=== PATIENT | male | born 1950 | race Caucasian/White ===

== ENCOUNTER 2021-07-14 11:30 | Inpatient (IN) ==
[2021-07-14] MEDS ORDERED: 0.9 % Sodium Chloride 1,000 ML ONE (11:48)
[2021-07-14] MEDS ORDERED: Isovue-370 500 ML BOTTLE IVP ONE ×2 (11:50→12:48)
[2021-07-14] MEDS ORDERED: 0.9 % Sodium Chloride 1,000 ML IVC ONE (11:50)
[2021-07-14 12:03] LABS: Basophils # 0.1 K/mcL (0.0-0.2); Basophils % 0.4 %; Eosinophils # 0.3 K/mcL (0.0-0.6); Eosinophils % 2.1 %; Hematocrit 34.3 % (37.5-50.1); Hemoglobin 10.4 g/dL (12.9-16.9); Immature Granulocytes % 0.8 % (0-4); Lymphocytes # 1.6 K/mcL (0.6-4.6); Lymphocytes % 10.9 %; Mean Corpuscular HGB Conc 30.3 g/dL (31.6-35.5); Mean Corpuscular Hemoglobin 27.7 pg (28.0-33.3); Mean Corpuscular Volume 91.2 fL (83.0-100.0); Mean Platelet Volume 9.9 fL (9.4-12.4); Monocytes # 1.2 K/mcL (0.0-1.3); Monocytes % 7.8 %; Neutrophils # 11.6 K/mcL (1.6-8.9); Platelet Count 295 K/mcL (140-400); Red Blood Count 3.76 M/mcL (4.19-5.50); Red Cell Distribution Width 16.4 % (11.5-14.5); White Blood Count 14.8 K/mcL (4.3-11.1)
[2021-07-14 12:18] LABS: INR 1.1; Prothrombin Time 12.8 Seconds (9.4-12.1)
[2021-07-14 12:21] LABS: Activated Partial Thrombo Time 31.5 Seconds (26.0-36.0)
[2021-07-14 12:23] LABS: Albumin 3.4 g/dL (3.5-5.7); Albumin/Globulin Ratio 0.8 (1.1-2.2); Bilirubin,Direct 0.2 mg/dL (0.0-0.2); Bilirubin,Indirect 0.4 mg/dL (0.0-1.0); Bilirubin,Total 0.6 mg/dL (0.3-1.0); Calcium 9.1 mg/dL (8.6-10.3); Globulin 4.1 g/dL (2.4-3.5); Potassium 5.8 mEq/L (3.5-5.1); Total Protein 7.5 g/dL (6.4-8.9); Troponin I 0.09 ng/mL (< 0.04)
[2021-07-14] MEDS ORDERED: 0.9 % Sodium Chloride 1,000 ML IV ONE (12:45)
[2021-07-14 13:03] LABS: Influenza A PCR Negative (Negative); Influenza B PCR Negative (Negative); Resp. Syncytial Virus PCR Negative (Negative); SARS-CoV-2 by PCR (In House) Negative (Negative)
[2021-07-14] MEDS ORDERED: Naloxone 0.4 MG/ML INJ IVP PRN (15:03)
[2021-07-14] MEDS ORDERED: Ondansetron ODT 4 MG TAB.RAPDIS SL PRN (15:03)
[2021-07-14] MEDS ORDERED: MOM Conc 10 ML UD.LIQ PO PRN (15:03)
[2021-07-14] MEDS ORDERED: Melatonin 3 MG TABLET PO PRN (15:03)
[2021-07-14] MEDS ORDERED: Perflutren Lipid Microsphere 1.3 ML in 0.9 % Sodium Chloride 8.7 ML IVP PRN (15:08)
[2021-07-14] MEDS ORDERED: 0.9 % Sodium Chloride 1,000 ML IVC SCH ×2 (15:15→18:15)
[2021-07-14] MEDS: Ipratropium/Albuterol Neb 3 ML IH SCH ×3 (15:49→23:19)
[2021-07-14 16:05] LABS: Albumin 3.1 g/dL (3.5-5.7); Albumin/Globulin Ratio 0.9 (1.1-2.2); Bilirubin,Total 0.5 mg/dL (0.3-1.0); Calcium 8.1 mg/dL (8.6-10.3); Globulin 3.6 g/dL (2.4-3.5); Potassium 6.1 mEq/L (3.5-5.1); Total Protein 6.7 g/dL (6.4-8.9)
[2021-07-14] MEDS: predniSONE 20 MG TABLET PO SCH (16:06)
[2021-07-14] MEDS: Azithromycin 500 MG in 0.9 % Sodium Chloride 250 ML IVPB SCH (16:06)
[2021-07-14] MEDS ORDERED: SODIUM ZIRCONIUM CYCLOSILICATE 5 GM POWD.PACK PO ONE (17:00)
[2021-07-14] MEDS ORDERED: D5% in Water 1,000 ML IVC SCH (17:00)
[2021-07-14] MEDS: Sodium Bicarbonate 150 MEQ in D5% in Water 1,000 ML IVC SCH (17:25)
[2021-07-14 18:05] LABS: Sodium, Urine 40.5 mEq/L
[2021-07-14 18:06] LABS: Bilirubin,Urine Negative (Negative); Blood,Urine Negative (Negative); Clarity,Urine Clear (Clear); Color,Urine Yellow (Yellow); Glucose,Urine (UA) Normal (Normal); Ketones,Urine Negative (Negative); Leukocyte Esterase,Urine Negative (Negative); Nitrite,Urine Negative (Negative); PH,Urine 5.5 pH Units (5.0-8.0); Protein,Urine Trace mg/dL (Neg-Trace); Specific Gravity,Urine 1.024 (1.010-1.025); Urobilinogen,Urine Normal (Normal)
[2021-07-14] MEDS: Aspirin Enteric Coated 81 MG Tablet PO SCH (18:24)
[2021-07-14] MEDS: Budesonide/Formoterol 160/4.5 1 PUFF INH IH SCH (19:34)
[2021-07-14] MEDS ORDERED: 0.9 % Sodium Chloride 500 ML IVC ONE (19:35)
[2021-07-14 19:37] LABS: Calcium 8.2 mg/dL (8.6-10.3); Potassium 5.5 mEq/L (3.5-5.1); Uric Acid 12.4 mg/dL (2.3-7.6)
[2021-07-14] MEDS: *HR* Heparin 5,000 UNIT/ML VIAL SQ SCH (21:03)
[2021-07-14] MEDS: SODIUM ZIRCONIUM CYCLOSILICATE 5 GM POWD.PACK PO SCH (22:34)
[2021-07-15 01:26] LABS: Basophils % 0.1 %; Hematocrit 32.7 % (37.5-50.1); Hemoglobin 9.8 g/dL (12.9-16.9); Immature Granulocytes % 0.4 % (0-4); Lymphocytes # 0.4 K/mcL (0.6-4.6); Lymphocytes % 4.7 %; Mean Corpuscular Hemoglobin 27.5 pg (28.0-33.3); Mean Corpuscular Volume 91.6 fL (83.0-100.0); Mean Platelet Volume 9.7 fL (9.4-12.4); Monocytes # 0.1 K/mcL (0.0-1.3); Monocytes % 1.3 %; Neutrophils # 8.5 K/mcL (1.6-8.9); Platelet Count 252 K/mcL (140-400); Red Blood Count 3.57 M/mcL (4.19-5.50); Red Cell Distribution Width 16.3 % (11.5-14.5); Segmented Neutrophils % 93.5 %; White Blood Count 9.1 K/mcL (4.3-11.1)
[2021-07-15 01:34] LABS: Estimated Average Glucose 131 mg/dl; Hemoglobin A1C 6.2 %
[2021-07-15 01:47] LABS: Albumin 3.1 g/dL (3.5-5.7); Albumin/Globulin Ratio 0.8 (1.1-2.2); Bilirubin,Total 0.4 mg/dL (0.3-1.0); Calcium 8.2 mg/dL (8.6-10.3); Globulin 3.7 g/dL (2.4-3.5); Total Protein 6.8 g/dL (6.4-8.9)
[2021-07-15 01:51] LABS: Troponin I 0.04 ng/mL (< 0.04)
[2021-07-15 02:01] LABS: Thyroid Stimulating Hormone 0.622 mcIU/mL (0.340-5.600)
[2021-07-15] MEDS: Ipratropium/Albuterol Neb 3 ML IH SCH ×4 (03:50→19:30)
[2021-07-15] MEDS: SODIUM ZIRCONIUM CYCLOSILICATE 5 GM POWD.PACK PO SCH (05:09)
[2021-07-15] MEDS: *HR* Heparin 5,000 UNIT/ML VIAL SQ SCH ×3 (05:14→20:24)
[2021-07-15] MEDS: BuPROPion XL (24 HR) 150 MG TABLET PO SCH (08:26)
[2021-07-15] MEDS: Aspirin Enteric Coated 81 MG Tablet PO SCH (08:26)
[2021-07-15] MEDS: predniSONE 20 MG TABLET PO SCH (08:26)
[2021-07-15] MEDS: Budesonide/Formoterol 160/4.5 1 PUFF INH IH SCH ×2 (11:17→19:30)
[2021-07-15] MEDS: Sodium Bicarbonate 150 MEQ in D5% in Water 1,000 ML IVC SCH (14:06)
[2021-07-15 14:12] LABS: Calcium 8.8 mg/dL (8.6-10.3); Potassium 4.6 mEq/L (3.5-5.1)
[2021-07-15] MEDS: Azithromycin 500 MG in 0.9 % Sodium Chloride 250 ML IVPB SCH (16:32)
[2021-07-15] MEDS ORDERED: atenoloL 50 MG TABLET PO SCH (21:00)
[2021-07-16 03:04] LABS: Basophils % 0.1 %; Hematocrit 30.3 % (37.5-50.1); Hemoglobin 9.4 g/dL (12.9-16.9); Immature Granulocytes % 0.7 % (0-4); Lymphocytes # 0.4 K/mcL (0.6-4.6); Lymphocytes % 4.1 %; Mean Corpuscular Hemoglobin 27.6 pg (28.0-33.3); Mean Corpuscular Volume 88.9 fL (83.0-100.0); Mean Platelet Volume 9.7 fL (9.4-12.4); Monocytes # 0.4 K/mcL (0.0-1.3); Monocytes % 3.4 %; Neutrophils # 9.7 K/mcL (1.6-8.9); Platelet Count 292 K/mcL (140-400); Red Blood Count 3.41 M/mcL (4.19-5.50); Red Cell Distribution Width 16.2 % (11.5-14.5); Segmented Neutrophils % 91.7 %; White Blood Count 10.6 K/mcL (4.3-11.1)
[2021-07-16 03:17] LABS: Calcium 8.6 mg/dL (8.6-10.3); Potassium 4.6 mEq/L (3.5-5.1)
[2021-07-16] MEDS: Ipratropium/Albuterol Neb 3 ML IH SCH ×4 (03:20→19:58)
[2021-07-16] MEDS: *HR* Heparin 5,000 UNIT/ML VIAL SQ SCH ×3 (05:36→21:14)
[2021-07-16] MEDS: BuPROPion XL (24 HR) 150 MG TABLET PO SCH (09:11)
[2021-07-16] MEDS: Aspirin Enteric Coated 81 MG Tablet PO SCH (09:11)
[2021-07-16] MEDS: atenoloL 50 MG TABLET PO SCH ×2 (09:11→21:15)
[2021-07-16] MEDS: predniSONE 20 MG TABLET PO SCH (09:11)
[2021-07-16] MEDS: Budesonide/Formoterol 160/4.5 1 PUFF INH IH SCH ×2 (10:17→19:58)
[2021-07-16] MEDS: 0.9 % Sodium Chloride 1,000 ML IVC SCH (12:29)
[2021-07-16] MEDS: Azithromycin 500 MG in 0.9 % Sodium Chloride 250 ML IVPB SCH (16:04)
[2021-07-17] MEDS: Sodium Bicarbonate 150 MEQ in D5% in Water 1,000 ML IVC SCH (00:03)
[2021-07-17 02:18] LABS: Basophils % 0.1 %; Hematocrit 33.5 % (37.5-50.1); Hemoglobin 10.5 g/dL (12.9-16.9); Immature Granulocytes % 0.7 % (0-4); Lymphocytes # 1.4 K/mcL (0.6-4.6); Lymphocytes % 9.6 %; Mean Corpuscular HGB Conc 31.3 g/dL (31.6-35.5); Mean Corpuscular Hemoglobin 28.1 pg (28.0-33.3); Mean Corpuscular Volume 89.6 fL (83.0-100.0); Mean Platelet Volume 9.6 fL (9.4-12.4); Monocytes # 1.1 K/mcL (0.0-1.3); Monocytes % 7.8 %; Neutrophils # 11.8 K/mcL (1.6-8.9); Platelet Count 340 K/mcL (140-400); Red Blood Count 3.74 M/mcL (4.19-5.50); Red Cell Distribution Width 16.3 % (11.5-14.5); Segmented Neutrophils % 81.8 %; White Blood Count 14.4 K/mcL (4.3-11.1)
[2021-07-17 02:40] LABS: Potassium 4.3 mEq/L (3.5-5.1)
[2021-07-17] MEDS: Ipratropium/Albuterol Neb 3 ML IH SCH ×3 (03:56→15:39)
[2021-07-17] MEDS: 0.9 % Sodium Chloride 1,000 ML IVC SCH (05:51)
[2021-07-17] MEDS: *HR* Heparin 5,000 UNIT/ML VIAL SQ SCH ×2 (05:52→17:11)
[2021-07-17] MEDS: Budesonide/Formoterol 160/4.5 1 PUFF INH IH SCH (07:35)
[2021-07-17] MEDS: predniSONE 20 MG TABLET PO SCH (08:13)
[2021-07-17] MEDS: atenoloL 50 MG TABLET PO SCH (08:14)
[2021-07-17] MEDS: Aspirin Enteric Coated 81 MG Tablet PO SCH (08:14)
[2021-07-17] MEDS: BuPROPion XL (24 HR) 150 MG TABLET PO SCH (08:14)
[2021-07-17 10:40] VITALS: O2SAT 94
[2021-07-17 12:32] VITALS: TEMP 97.9
[2021-07-17] MEDS ORDERED: cloNIDine HCL 0.1 MG TABLET PO ONE (12:47)
[2021-07-17 17:04] VITALS: PULSE 84
[2021-07-17] MEDS: Azithromycin 500 MG in 0.9 % Sodium Chloride 250 ML IVPB SCH (17:12)
[2021-07-17 17:46] VITALS: BP 156/70
[2021-07-17] MEDS ORDERED: hydrALAZINE 25 MG TABLET PO SCH (17:49)
== END 2021-07-17 16:55 | disposition home or self-care (01) | DRG 682 ==
LOC: 2NENU 11:30 → EMEROOARM 11:30 → SUATTDRO 15:20 → 2NENU 15:44
PROVIDERS: ADMIT Hospitalist; ATTEND Registered Nurse